=== PATIENT | female | born 1990 | race Caucasian/White ===

== ENCOUNTER 2019-01-18 20:12 | Emergency (ER) | payer MEDICAID ==
[~2019-01-18] VITALS: Ht 154.9 cm; Wt 77.3 kg
[2019-01-18 20:18] VITALS: Ht 154.9 cm; Wt 77.3 kg
[2019-01-18] MEDS ORDERED: LAMICTAL150 M1 PO (20:20)
[2019-01-18 21:35] VITALS: BP 120/69
== END 2019-01-18 21:35 | disposition home or self-care (01) ==
LOC: D.ER 20:12
DX: S91.311A Laceration without foreign body, right foot, initial encounter (principal); W25.XXXA Contact with sharp glass, initial encounter

== ENCOUNTER 2019-02-17 11:14 | Emergency (ER) | payer OTHER ==
[~2019-02-17] VITALS: Ht 154.9 cm; Wt 72.7 kg
[~2019-02-17 11:14] MED LIST: LAMICTAL150 M1 PO
[2019-02-17 11:21] VITALS: Ht 154.9 cm; Wt 72.7 kg
[2019-02-17] MEDS ORDERED: VOLTAREN75 MG PO (13:52)
[2019-02-17 14:12] VITALS: BP 118/76
== END 2019-02-17 14:13 | disposition home or self-care (01) ==
LOC: D.ER 11:14
DX: R51 Headache (principal); V49.9XXA Car occupant (driver) (passenger) injured in unspecified traffic accident, initial encounter; M62.838 Other muscle spasm